=== PATIENT | female | born 1940 | race African-American/Black ===

== ENCOUNTER 2019-05-12 15:38 | Inpatient (IN) | payer OTHER ==
[~2019-05-12] VITALS: Ht 172.7 cm; Wt 48.1 kg
[2019-05-12] MEDS ORDERED: IV NORMAL SALINE 1000ML BAG 1,000 ML IV SCH (16:46)
[2019-05-12] MEDS: MORPHINE SULFATE 4 MG/ML VIAL. IV/SQ PRN ×2 (16:55→19:52)
[2019-05-12 16:57] LABS: BASO # 0.1 x10^3/uL (0.0-0.2); BASO % 1 % (0-3); EOS % 0 % (0-3); HEMATOCRIT 35.6 % (36.0-47.0); HEMOGLOBIN 11.8 g/dL (12.0-15.5); LYMPH # 1.9 x10^3/uL (1.0-4.8); LYMPH % 22 % (24-48); MEAN CORPUSCULAR HEMOGLOBIN 28 pg (25-35); MEAN CORPUSCULAR HGB CONC 33 g/dL (31-37); MEAN CORPUSCULAR VOLUME 86 fL (79-100); MONO # 0.3 x10^3/uL (0.0-1.1); MONO % 3 % (0-9); NEUT # 6.6 x10^3/uL (1.8-7.7); NEUT % 74 % (31-73); PLATELET COUNT 286 x10^3/uL (140-400); RED BLOOD COUNT 4.16 x10^6/uL (3.50-5.40); RED CELL DISTRIBUTION WIDTH 15.4 % (11.5-14.5); WHITE BLOOD COUNT 8.9 x10^3/uL (4.0-11.0)
[2019-05-12] MEDS ORDERED: LABETALOL 20 MG/4 ML DISP.SYRIN. IVP ONE (17:00)
[2019-05-12 17:30] LABS: ALBUMIN 3.8 g/dL (3.4-5.0); CALCIUM 9.8 mg/dL (8.5-10.1); CREATININE 1.3 mg/dL (0.6-1.0); GFR 47.8; POTASSIUM 3.2 mmol/L (3.5-5.1); TOTAL BILIRUBIN 0.5 mg/dL (0.2-1.0); TOTAL PROTEIN 7.5 g/dL (6.4-8.2)
[2019-05-12] MEDS ORDERED: ONDANSETRON PF 4 MG/2 ML VIAL. ONE (17:37)
[2019-05-12] MEDS ORDERED: ONDANSETRON PF 4 MG/2 ML VIAL. IV ONE (17:45)
[2019-05-12] MEDS ORDERED: PROCHLORPERAZINE 10 MG/2 ML VIAL. IV ONE (17:45)
[2019-05-12] MEDS ORDERED: MORPHINE SULFATE 10 MG/ML VIAL. IV ONE (17:45)
[2019-05-12] MEDS ORDERED: IOHEXOL 350 MG/ML 100 ML VIAL. ONE (18:00)
[2019-05-12] MEDS ORDERED: IOHEXOL 350 MG/ML 100 ML VIAL. IV ONE (18:00)
[2019-05-12] MEDS ORDERED: CONTRAST GIVEN. MC PRN (18:15)
--- NOTE | 2019-05-12 18:31 | RAD ---
PQRS Compliance statement: One or more of the following individualized dose reduction techniques were utilized for this examination: 1. Automated exposure control. 2. Adjustment of the mA and/or kV according to patient size. 3. Use of iterative reconstruction technique. Indication:Rule out dissection. Severe epigastric pain. Hypertension. Shortness of breath. TECHNIQUE: CT angiogram of the chest, abdomen and pelvis with IV contrast without and with multiplanar MIP reformats. 3-D volume rendered postprocessing was performed. COMPARISON: None FINDINGS: Heart is normal in size. No pericardial or pleural effusion. There is no evidence of aortic aneurysm or dissection. Mild atherosclerotic plaque in the infrarenal aorta and bilateral internal iliac arteries. The visualized arch vessels are patent. The celiac axis, splenic artery, left gastric artery, common hepatic artery, SMA, bilateral renal arteries, VELMA, bilateral common iliac arteries, bilateral external/internal iliac arteries, bilateral FURNACE CHECKER are patent. No enlarged axillary, mediastinal or hilar adenopathy. Mild interstitial opacities in the lingula. Bilateral peribronchial wall thickening. Diffusely patulous esophagus. Liver, spleen, pancreas, adrenals within normal limits. Status post cholecystectomy. CBD is dilated without radiopaque stone. Trace ascites. Right kidney within normal limits. Severe left hydronephrosis. No free pelvic fluid. No bowel obstruction. Urinary bladder demonstrates no radiopaque stone. Status post hysterectomy. No pneumoperitoneum. No suspicious bony lesion. IMPRESSION: 1. No evidence of aortic dissection. No significant atherosclerotic disease. 2. Patchy opacity in the lingula and bilateral peribronchial wall thickening in the lower lobes may be secondary to bronchitis and lingular pneumonia. 3. Severe left hydronephrosis. No dilated ureter seen with suggests probably UPJ stricture. Delayed that 4. Trace ascites. Electronically signed by: Hermes Serrato DO (05/12/2019 6:28 PM) [facility]
[2019-05-12 19:08] LABS: BILIRUBIN,URINE NEGATIVE (NEG); CLARITY,URINE CLEAR; COLOR,URINE YELLOW; NITRITE,URINE NEGATIVE (NEG); PH,URINE 6.5; PROTEIN,URINE NEGATIVE (NEG-TRACE); UROBILINOGEN,URINE 0.2 mg/dL (0.2 mg/dL)
[2019-05-12 19:14] LABS: AMPHETAMINE/METHAMPHETAMINE NEG (NEG); BARBITURATES NEG (NEG); BENZODIAZEPINES NEG (NEG); CANNABINOIDS NEG (NEG); COCAINE NEG (NEG); METHADONE NEG (NEG); OPIATES POS (NEG); PHENCYCLIDINE NEG (NEG)
[2019-05-12 19:17] LABS: BACTERIA,URINE 0 /HPF (0-FEW); SQUAMOUS EPITHELIAL CELL,UR MOD /LPF
[2019-05-12] MEDS ORDERED: ONDANSETRON PF 4 MG/2 ML VIAL. IV PRN (20:00)
[2019-05-12] MEDS ORDERED: MORPHINE SULFATE 4 MG/ML VIAL. IV PRN (20:00)
--- NOTE | 2019-05-12 20:00 | PHYS DOC ---
Past Medical History Past Medical History: Hypertension (MELINA LAURENT APRN) Past Surgical History: Cholecystectomy (MELINA LAURENT APRN) Alcohol Use: None Drug Use: None (MELINA LAURENT APRN) Adult General Chief Complaint Chief Complaint: SHORTNESS OF BREATH HPI HPI Patient is a 79 year old female with history of hypertension who presents to the ED today complaining of 9 out of 10 epigastric abdominal pain with nausea vomiting that began 45 minutes prior to coming to the ED. Patient is a poor historian, family member present is also poor historian. Patient is thrashing around the bed. (MELINA LAURENT APRN) Review of Systems Review of Systems Constitutional: Denies fever or chills [] Eyes: Denies change in visual acuity, redness, or eye pain [] HENT: Denies nasal congestion or sore throat [] Respiratory: Denies cough or shortness of breath [] Cardiovascular: No additional information not addressed in HPI [] GI: Reports epigastric abdominal pain with nausea and vomiting, denies bloody stools or diarrhea [] : Denies dysuria or hematuria [] Musculoskeletal: Denies back pain or joint pain [] Integument: Denies rash or skin lesions [] Neurologic: Denies headache, focal weakness or sensory changes [] All other systems were reviewed and found to be within normal limits, except as documented in this note. (MELINA LAURENT APRN) Current Medications Current Medications Current Medications Medications (Trade) Dose Ordered Sig/Theo Start Time Stop Time Status Last Admin Dose Admin Info (CONTRAST GIVEN -- Rx MONITORING) 1 each PRN DAILY PRN 05/12/19 18:15 05/14/19 18:14 Iohexol (Omnipaque 350 Mg/ml) 100 ml STK-MED ONCE 05/12/19 18:00 05/12/19 18:01 DC Labetalol HCl (Normodyne Iv Push) 10 mg 1X ONCE 05/12/19 17:00 05/12/19 17:01 DC 05/12/19 17:05 10 MG Levofloxacin/ Dextrose 100 ml @ 100 mls/hr 1X ONCE 05/12/19 20:00 05/12/19 20:59 Morphine Sulfate (Morphine Sulfate) 4 mg PRN Q2HR PRN 05/12/19 20:00 05/13/19 19:59 Ondansetron HCl (Zofran) 4 mg PRN Q8HRS PRN 05/12/19 20:00 05/13/19 19:59 Potassium Chloride (Klor-Con) 40 meq 1X ONCE 05/12/19 20:30 05/12/19 20:31 Prochlorperazine Edisylate (Compazine) 10 mg 1X ONCE 05/12/19 17:45 05/12/19 17:46 DC 05/12/19 20:01 10 MG Sodium Chloride 1,000 ml @ 100 mls/hr Q10H 05/12/19 16:46 05/13/19 02:45 05/12/19 16:56 100 MLS/HR (WAYNE SLOAN MD) Allergies Allergies Allergies Coded Allergies Type Severity Reaction Last Updated Verified Penicillins Allergy Intermediate 05/12/19 Yes (WAYNE SLOAN MD) Physical Exam Physical Exam Constitutional: Well developed, well nourished, no acute distress, non-toxic appearance. [] HENT: Normocephalic, atraumatic, bilateral external ears normal, oropharynx moist, no oral exudates, nose normal. [] Eyes: PERRLA, EOMI, conjunctiva normal, no discharge. [] Neck: Normal range of motion, no tenderness, supple, no stridor. [] Cardiovascular:Heart rate regular rhythm, no murmur [] Lungs & Thorax: Bilateral breath sounds clear to auscultation [] Abdomen: Bowel sounds normal, soft, no tenderness, no masses, no pulsatile masses. [] Skin: Warm, dry, no erythema, no rash. [] Back: No tenderness, no CVA tenderness. [] Extremities: No tenderness, no cyanosis, no clubbing, ROM intact, no edema. [] Neurologic: Alert and oriented X 3, normal motor function, normal sensory function, no focal deficits noted. [] Psychologic: Affect normal, judgement normal, mood normal. [] (MELINA LAURENT APRN) Current Patient Data Vital Signs Vital Signs Date Time Temp Pulse Resp B/P (MAP) Pulse Ox O2 Delivery O2 Flow Rate FiO2 05/12/19 19:52 49 24 165/87 (113) Room Air 05/12/19 18:40 99 05/12/19 16:19 98.5 98.5 (WAYNE SLOAN MD) Lab Values Laboratory Tests Test 05/12/19 16:35 05/12/19 18:50 White Blood Count 8.9 x10^3/uL (4.0-11.0) Red Blood Count 4.16 x10^6/uL (3.50-5.40) Hemoglobin 11.8 g/dL (12.0-15.5) L Hematocrit 35.6 % (36.0-47.0) L Mean Corpuscular Volume 86 fL (79-100) Mean Corpuscular Hemoglobin 28 pg (25-35) Mean Corpuscular Hemoglobin Concent 33 g/dL (31-37) Red Cell Distribution Width 15.4 % (11.5-14.5) H Platelet Count 286 x10^3/uL (140-400) Neutrophils (%) (Auto) 74 % (31-73) H Lymphocytes (%) (Auto) 22 % (24-48) L Monocytes (%) (Auto) 3 % (0-9) Eosinophils (%) (Auto) 0 % (0-3) Basophils (%) (Auto) 1 % (0-3) Neutrophils # (Auto) 6.6 x10^3/uL (1.8-7.7) Lymphocytes # (Auto) 1.9 x10^3/uL (1.0-4.8) Monocytes # (Auto) 0.3 x10^3/uL (0.0-1.1) Eosinophils # (Auto) 0.0 x10^3/uL (0.0-0.7) Basophils # (Auto) 0.1 x10^3/uL (0.0-0.2) Sodium Level 143 mmol/L (136-145) Potassium Level 3.2 mmol/L (3.5-5.1) L Chloride Level 104 mmol/L (98-107) Carbon Dioxide Level 24 mmol/L (21-32) Anion Gap 15 (6-14) H Blood Urea Nitrogen 16 mg/dL (7-20) Creatinine 1.3 mg/dL (0.6-1.0) H Estimated GFR (Cockcroft-Gault) 47.8 BUN/Creatinine Ratio 12 (6-20) Glucose Level 180 mg/dL (70-99) H Calcium Level 9.8 mg/dL (8.5-10.1) Magnesium Level 2.0 mg/dL (1.8-2.4) Total Bilirubin 0.5 mg/dL (0.2-1.0) Aspartate Amino Transferase (AST) 14 U/L (15-37) L Alanine Aminotransferase (ALT) 10 U/L (14-59) L Alkaline Phosphatase 74 U/L (46-116) Creatine Kinase 134 U/L (26-192) Creatine Kinase MB (Mass) 1.0 ng/mL (0.0-3.6) Creatine Kinase MB Relative Index 0.7 % (0-4) Troponin I Quantitative < 0.017 ng/mL (0.000-0.055) HL-Mck-O-Type Natriuretic Peptide 2161 pg/mL (0-449) H Total Protein 7.5 g/dL (6.4-8.2) Albumin 3.8 g/dL (3.4-5.0) Albumin/Globulin Ratio 1.0 (1.0-1.7) Lipase 92 U/L (73-393) Thyroid Stimulating Hormone (TSH) 13.447 uIU/mL (0.358-3.74) H Urine Collection Type Unknown Urine Color Yellow Urine Clarity Clear Urine pH 6.5 Urine Specific [place] >=1.030 Urine Protein Negative mg/dL (NEG-TRACE) Urine Glucose (UA) Negative mg/dL (NEG) Urine Ketones (Stick) Negative mg/dL (NEG) Urine Blood Negative (NEG) Urine Nitrite Negative (NEG) Urine Bilirubin Negative (NEG) Urine Urobilinogen Dipstick 0.2 mg/dL (0.2 mg/dL) Urine Leukocyte Esterase Negative (NEG) Urine RBC 1-2 /HPF (0-2) Urine WBC 1-4 /HPF (0-4) Urine Squamous Epithelial Cells Mod /LPF Urine Bacteria 0 /HPF (0-FEW) Urine Mucus Slight /LPF Urine Opiates Screen Pos (NEG) Urine Methadone Screen Neg (NEG) Urine Barbiturates Neg (NEG) Urine Phencyclidine Screen Neg (NEG) Urine Amphetamine/Methamphetamine Neg (NEG) Urine Benzodiazepines Screen Neg (NEG) Urine Cocaine Screen Neg (NEG) Urine Cannabinoids Screen Neg (NEG) Urine Ethyl Alcohol Neg (NEG) Laboratory Tests 05/12/19 16:35 Laboratory Tests 05/12/19 16:35 (WAYNE SLOAN MD) EKG EKG 1740 interpreted by sinus rhythm with inverted T waves on V4,, V5 no stemi.[] (MELINA LAURENT APRN) Radiology/Procedures Radiology/Procedures []PROCEDURE: CT ANGIO CHEST ABD PELVIS PQRS Compliance statement: One or more of the following individualized dose reduction techniques were utilized for this examination: 1. Automated exposure control. 2. Adjustment of the mA and/or kV according to patient size. 3. Use of iterative reconstruction technique. Indication:Rule out dissection. Severe epigastric pain. Hypertension. Shortness of breath. TECHNIQUE: CT angiogram of the chest, abdomen and pelvis with IV contrast without and with multiplanar MIP reformats. 3-D volume rendered postprocessing was performed. COMPARISON: None FINDINGS: Heart is normal in size. No pericardial or pleural effusion. There is no evidence of aortic aneurysm or dissection. Mild atherosclerotic plaque in the infrarenal aorta and bilateral internal iliac arteries. The visualized arch vessels are patent. The celiac axis, splenic artery, left gastric artery, common hepatic artery, SMA, bilateral renal arteries, VELMA, bilateral common iliac arteries, bilateral external/internal iliac arteries, bilateral ENGRAVER LETTERING are patent. No enlarged axillary, mediastinal or hilar adenopathy. Mild interstitial opacities in the lingula. Bilateral peribronchial wall thickening. Diffusely patulous esophagus. Liver, spleen, pancreas, adrenals within normal limits. Status post cholecystectomy. CBD is dilated without radiopaque stone. Trace ascites. Right kidney within normal limits. Severe left hydronephrosis. No free pelvic fluid. No bowel obstruction. Urinary bladder demonstrates no radiopaque stone. Status post hysterectomy. No pneumoperitoneum. No suspicious bony lesion. IMPRESSION: 1. No evidence of aortic dissection. No significant atherosclerotic disease. 2. Patchy opacity in the lingula and bilateral peribronchial wall thickening in the lower lobes may be secondary to bronchitis and lingular pneumonia. 3. Severe left hydronephrosis. No dilated ureter seen with suggests probably UPJ stricture. Delayed that 4. Trace ascites. Electronically signed by: Hermes Serrato DO (05/12/2019 6:28 PM) [facility] DICTATED and SIGNED BY: HERMES SERRATO DO DATE: 05/12/19 182 (MELINA LAURENT APRN) Course & Med Decision Making Course & Med Decision Making Pertinent Labs and Imaging studies reviewed. (See chart for details) This is 79-year-old. Patient presents to the ED today with epigastric abdominal pain nausea and vomiting that began 45 minutes prior to coming to the ED. Patient's blood pressure arrival is 258/121 with a heart rate of 60 EKG noted foreign body T waves, discussed results with Dr. Varma CBC with normal WBC, hemoglobin 11.8, hematocrit 35.6, CMP with potassium of 3.2-oral potassium replacement ordered. CT chest abdomen and pelvis were ordered to rule out dissection, CT is noted for possible pneumonia. Also CT noted for left hydronephrosis. Urine analysis is negative for infection Spoke with Dr. Ambrose who accepted patient for admission on behalf of Dr. Zacarias (MELINA LAURENT APRN) Course & Med Decision Making Staff Physician Addendum: I was working in the ER during the course of this patient's visit. I was available for consultation as needed, I saw the patient we did a stat CT scan for dissection we gave labetalol Critical care time was 35 minutes exclusive of procedures. For management of hypertensive urgency with blood pressures in the 258 range initially. Improved significantly after dose of labetalol we did a stat CT scan to rule out dissection. Pneumonia was identified antibiotics ordered lactic acid is currently pending initially Dr. ambrose would be the admitting doctor but she called us back and said this patient is no longer being seen in their practice so I spoke with Dr. Handley at 8:15 PM serial troponins management of blood pressure and pneumonia he accepted the admission] (WAYNE SLOAN MD) Dragon Disclaimer Dragon Disclaimer This electronic medical record was generated, in whole or in part, using a voice recognition dictation system. (MELINA LAURENT APRN) Departure Departure Impression: Primary Impression: Hypertension Additional Impressions: Abdominal pain Community acquired pneumonia Abnormal EKG Disposition: ADMITTED INPATIENT Admitting Physician: FRANCISCO (WAYNE SLOAN MD) Condition: STABLE Referrals: DAHIANA ZACARIAS MD (PCP) Problem Qualifiers Primary Impression: Hypertension Hypertension type: unspecified Qualified Codes: I10 - Essential (primary) hypertension Additional Impressions: Abdominal pain Abdominal location: epigastric Qualified Codes: R10.13 - Epigastric pain Community acquired pneumonia Laterality: unspecified laterality Qualified Codes: J18.9 - Pneumonia, unspecified organism MELINA LAURENT APRN May 12, 2019:00 WAYNE SLOAN MD May 12, 2019 20:18
[2019-05-12] MEDS ORDERED: POTASSIUM CHLORIDE 20 MEQ TABLET.ER. PO ONE (20:30)
[2019-05-12] MEDS ORDERED: fentaNYL PF VIAL 100 MCG/2 ML VIAL IV ONE (21:00)
[2019-05-12 22:14] LABS: BASO % 0 % (0-3); EOS % 0 % (0-3); HEMATOCRIT 38.2 % (36.0-47.0); HEMOGLOBIN 12.4 g/dL (12.0-15.5); LYMPH # 0.6 x10^3/uL (1.0-4.8); LYMPH % 7 % (24-48); MEAN CORPUSCULAR HEMOGLOBIN 28 pg (25-35); MEAN CORPUSCULAR HGB CONC 33 g/dL (31-37); MEAN CORPUSCULAR VOLUME 87 fL (79-100); MONO # 0.2 x10^3/uL (0.0-1.1); MONO % 2 % (0-9); NEUT # 7.7 x10^3/uL (1.8-7.7); NEUT % 91 % (31-73); PLATELET COUNT 253 x10^3/uL (140-400); WHITE BLOOD COUNT 8.5 x10^3/uL (4.0-11.0)
--- NOTE | 2019-05-12 22:45 | NUR ---
Patient admitted to room 261. Patient alert and oriented x 4. Patient oriented to room, bed, call light and plan of care. Patient verbalized understanding. ED IVF bag completed and stopped per ED RN. Patient hooked up to monitor and admission vitals, height and weight obtained. See admission assessment/documentation. Call light in reach, Patient verbalized understanding on need to call to get out of bed.
[2019-05-12 22:53] VITALS: BP 91/61
[2019-05-12 22:57] LABS: % BANDS 2 % (0-9); % LYMPHS 10 % (24-48); % MONOS 1 % (0-10); % SEGS 87 % (35-66)
[2019-05-12 22:58] LABS: PLT ESTIMATE ADEQUATE (ADEQUATE)
[2019-05-12 22:59] LABS: TOXIC GRANULATION SLIGHT
--- NOTE | 2019-05-13 02:35 | NUR ---
Patient assisted to restroom and incontinent of urine. Upon removing Patient's pants noticed Patient has prolapsed bladder or uterus. Patient denies ever being told she has a prolapsed uterus or bladder.
[2019-05-13 03:55] VITALS: BP 99/65
--- NOTE | 2019-05-13 04:20 | NUR ---
Patient complains of Abdominal pain Morphine SIVP given. Patient c/o SOA, O2 2 liters nasal canula placed on Patient. O2 saturation 96-100 percent on 2 liters.
--- NOTE | 2019-05-13 06:04 | EKG ---
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
--- NOTE | 2019-05-13 06:05 | EKG ---
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
[2019-05-13] MEDS ORDERED: ETOMIDATE 20 MG/10 ML VIAL. IV ONE (06:20)
[2019-05-13] MEDS ORDERED: SUCCINYLCHOLINE 200 MG/10 ML VIAL. ONE (06:20)
[2019-05-13 06:25] LABS: BASO % 0 % (0-3); EOS % 0 % (0-3); HEMATOCRIT 32.9 % (36.0-47.0); HEMOGLOBIN 9.9 g/dL (12.0-15.5); LYMPH # 1.7 x10^3/uL (1.0-4.8); LYMPH % 19 % (24-48); MEAN CORPUSCULAR HEMOGLOBIN 28 pg (25-35); MEAN CORPUSCULAR HGB CONC 30 g/dL (31-37); MONO # 0.3 x10^3/uL (0.0-1.1); MONO % 3 % (0-9); NEUT # 7.2 x10^3/uL (1.8-7.7); NEUT % 78 % (31-73); PLATELET COUNT 180 x10^3/uL (140-400); RED BLOOD COUNT 3.55 x10^6/uL (3.50-5.40); RED CELL DISTRIBUTION WIDTH 17.1 % (11.5-14.5); WHITE BLOOD COUNT 9.2 x10^3/uL (4.0-11.0)
--- NOTE | 2019-05-13 06:25 | PDOC5 ---
CODE REPORT CODE REPORT I was called to BRIDGET OLIVAREZ at 5:40 AM this is a 79-year-old female admitted overnight for epigastric pain hypertension community acquired pneumonia. Had T- wave inversions on EKG reviewed with the rag willow operator. Apparently had a bradycardic arrest was complaining of shortness of breath prior to the incident On my arrival CPR was being performed we gave epinephrine we gave a dose of atropine I intubated the patient intubation note: [place] 4 blade 7.5 tube first attempt esophageal intubation quickly probably discovered in less than 1 minute it was removed and then placed a 7.5 tube into the trachea Confirmed with both quantitative end-tidal CO2 as well as breath sounds as well as I looked again with a Ethan scope to confirm placement Central line emergent procedure crash Modified sterile technique due to emergent conditions. Triple-lumen right femoral brown port was not flushing remainder of the ports were working I notified the nursing staff of this discrepancy. Patient had a return of spontaneous resolution after approximately 25 minutes of the code. There was one episode of what look like V. fib so we shocked her once but it was 10 more minutes before R OSC. Patient was on dopamine drip due to the initial bradycardia had multiple doses of epinephrine also a dose of bicarbonate ultimately we did get return of spontaneous circulation post code EKG I spoke with the rag willow operator on-call. Reviewed EKG at 6:1 15 a.m.. Global ischemia no STEMI he will come in shortly and discuss a possible catheter with the family. Patient is transferred to the ICU in critical condition Review of the chart from earlier did note 2 negative troponins mildly elevated lactic acidosis. Current etiology of the cardiac arrest is somewhat unclear at this time differential would include primary cardiac versus hypoxic bradycardic arrest versus intra-abdominal process however other than trace ascites CT scan did not show acute surgical emergency from the emergency room visit. Critical care time was 45 minutes exclusive of procedures. WAYNE SLOAN MD May 13, 2019 06:25
[2019-05-13 06:35] LABS: MEAN CORPUSCULAR VOLUME 91 fL (79-100)
[2019-05-13] MEDS ORDERED: AMIODARONE 900 MG in IV DEXTROSE 5% 500 ML IV PRN (06:45)
[2019-05-13 06:54] LABS: CREATININE 1.7 mg/dL (0.6-1.0); GFR 35.1
[2019-05-13 07:00] VITALS: BP 49/31
[2019-05-13 07:00] LABS: POTASSIUM 5.8 mmol/L (3.5-5.1)
[2019-05-13 07:18] LABS: BASE EXCESS ABG -11 mmol/L (-3-3); HCO3 ABG 19 mmol/L (21-28); PO2 ABG 53 mmHg (65-108)
[2019-05-13 07:19] LABS: FIO2 ABG 100
--- NOTE | 2019-05-13 07:19 | NUR ---
0615- pt transfered to room 108 from 2 S following pt code. Pt unresponsive and placed on ventilator and monitor upon arrival. Report received from AVEL Mooney. Unable to get a BP, HR 90s with a pulse. Will monitor. 0626- patient HR decreased to 50s without a pulse. Code blue called, see code blue sheet.
--- NOTE | 2019-05-13 07:32 | EKG ---
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
--- NOTE | 2019-05-13 07:38 | EKG ---
[facility] [address] [place] [address] Test Date: 2019-05-12 Test Time: 21:55:45 Pat Name: STEVEN COWART Department: Room: 108 1 Gender: F Manager Account Management: : 1940 Requested By: MIKEY MONTGOMERY Order Number: [id number] Reading MD: Ruben Varma MD Measurements Intervals [place] Rate: 48 P: 35 MT: 144 QRS: -26 QRSD: 94 T: -101 QT: 616 QTc: 550 Interpretive Statements SINUS BRADYCARDIA ANTERIOR/LATERAL ISCHEMIA Electronically Signed On 05-23-2019 14:44:09 CDT by Ruben Varma MD
[2019-05-13 07:50] VITALS: BP 125/56
--- NOTE | 2019-05-13 08:10 | NUR ---
At 0533 Patient's heart rate on monitor was 38. Rapid response called. Fast patches placed on Patient and code cart at bedside. Patient condition deteriorated became apneic, no pulse found. Code called. ACLS protocol initiated. See code Blue record. Life pack 12 time was 8 minutes slower than wall clock, recorder stated she used life pack clock for recording. Patient taken to ICU at 0610. Report given to Pati VALLECILLO in ICU.
--- NOTE | 2019-05-13 08:35 | RAD ---
CHEST AP ONLY Clinical Indication: Intubated Comparison: 05/12/2019 CTA of the chest abdomen and pelvis . Findings: Portable supine frontal view of the chest was obtained. Endotracheal tube terminates 2.6 cm from the neva. Enteric tube terminates at the gastric esophageal junction. The cardiomediastinal silhouette is normal. Interstitial thickening of the lung braxton noted. Left lower lung field atelectasis is present. Retrocardiac atelectasis is evident.. Linear lucency at the right lung base laterally probably represents a skinfold. No pleural effusion is appreciated. Right fifth, sixth, and seventh acute displaced rib fractures posterolaterally are present . Spurring of the thoracic spine is noted. Degenerative changes of the left glenohumeral joint evident. IMPRESSION: Acute right rib fractures are noted in the interval. Right basilar opacity likely represents a skinfold. Consider follow-up semierect view to assess for possibility of pneumothorax. Interstitial thickening along braxton noted. Retrocardiac atelectasis noted. Enteric tube terminates just past the gastroesophageal junction level. Further advancement by a few to several more centimeters to be considered. Electronically signed by: Luc Rojas MD (05/13/2019 8:32 AM) [facility]
--- NOTE | 2019-05-13 08:50 | RAD ---
Examination: KUB History: Orogastric tube placement. Comparison/Correlation: 11/25/2009 and to a chest x-ray exam and CT chest with contrast Findings: Supine portable frontal view of the abdomen was obtained. Retrocardiac left basilar atelectasis is seen. Interstitial thickening lung bases noted. Acute right sixth and seventh rib fractures posterolaterally are present. Enteric tube terminates at the level of the gastroesophageal junction. Represent surgical clips are present. Bowel gas pattern is unremarkable. Lucency is noted involving the right flank region and of indeterminate significance. Retained contrast noted in the pelvicalyceal systems. Impression: Enteric tube terminates at the gastroesophageal junction. Consider further advancement by at least 7 cm is not already performed. No bowel obstruction. Lucency overlying the right flank region is of indeterminate significance. Consider upright abdomen x-ray view or CT exam to assess for possibility of extraluminal gas all. Discussed with the patient's nurse Renetta on 05/13/2019 at 8:40 AM. Electronically signed by: Luc Rojas MD (05/13/2019 8:47 AM) [facility]
[2019-05-13] MEDS ORDERED: EPINEPHrine SYRINGE 1 MG/10 ML SYRINGE ONE ×2 (09:00)
[2019-05-13] MEDS ORDERED: DOPamine 400MG/250ML PREMIX 400 MG/250 ML BAG IV ONE (09:00)
[2019-05-13] MEDS ORDERED: ATROPINE 0.5 MG/5 ML DISP.SYRINGE. ONE ×2 (09:00)
[2019-05-13] MEDS ORDERED: EPINEPHRINE IV PRN (09:00)
[2019-05-13] MEDS ORDERED: FLU VAX QS 2019-20 (36MOS+)/PF 0.5 ML SYRINGE. VAX IM ONE (09:00)
[2019-05-13] MEDS ORDERED: AMIODARONE 150 MG/3 ML VIAL ONE (09:00)
[2019-05-13] MEDS ORDERED: MAGNESIUM SULFATE PREMIX 1 GM/100 ML BAG. IV ONE (09:00)
[2019-05-13] MEDS ORDERED: NORMAL SALINE IV PRN (09:00)
[2019-05-13] MEDS ORDERED: SODIUM BICARB ADULT 8.4% 50 MEQ/50 ML DISP.SYRIN. ONE ×2 (09:00)
[2019-05-13] MEDS: NOREPINEPHRIN 8MG/250ML PREMIX 250 ML IV PRN ×2 (09:10→11:58)
[2019-05-13 09:41] LABS: BASE EXCESS ABG -22 mmol/L (-3-3); HCO3 ABG 8 mmol/L (21-28); PCO2 ABG 33 mmHg (35-46); PO2 ABG 198 mmHg (65-108); SAT O2 ABG 98 % (92-99)
[2019-05-13 09:44] LABS: FIO2 ABG 100
--- NOTE | 2019-05-13 10:20 | NUR ---
Patient transferred to ICU prior to change of shift. Currently on maximum dose of Levophed, Dopamine, Epi gtt's. Intubated during code. Dr. Ulloa consulted. Dr. Varma notified of situation, order received for EKG. Patient not candidate for hypothermia protocol due to vasopressor support. Dr. Niño notified of consult while he was on unit. Order received to "call him tomorrow" to give patient time to wake up from code situation. Family is at bedside-- notified of severity of the situation, patient condition. Unable to obtain BP at this time. MD aware. Dr. Vera attemtped multiple times. ART line did not sustain. See VS, assessments.
--- NOTE | 2019-05-13 10:48 | PDOC2 ---
CARDIAC CONSULT DATE OF CONSULT Date of Consult DATE: 05/13/19 TIME: 10:38 REASON FOR CONSULT Reason for Consult: Abnormal EKG REFERRING PHYSICIAN Referring Physician: Poornima Reynolds APRN SOURCE Source: Chart review, Patient HISTORY OF PRESENT ILLNESS HISTORY OF PRESENT ILLNESS This is a 79 yo female who presented secondary to abdominal pain and nausea/vomiting. Early this morning, rapid response was called due to chaya ycardia and agonal breathing. Patient eventually went in to PEA arrest. Shocked deliver twice. Some reported V-fib during code. ROSC was obtained after 25 mins. Patient arrested again in ICU and was coded for about 10mins with ROSC. Patient remains significantly hypotensive despite being maxed out of 3 pressors. No reports of recent chest pain, palpitations, dizziness, or diaphoresis. No reports of chest pain prior to code. PAST MEDICAL HISTORY Cardiovascular: HTN, Hyperlipidemia Musculoskeletal: Osteoarthritis PAST SURGICAL HISTORY Past Surgical History: No pertinent history SOCIAL HISTORY ALCOHOL: none Drugs: None Lives: with Family CURRENT MEDICATIONS CURRENT MEDICATIONS Current Medications Medications (Trade) Dose Ordered Sig/Theo Route PRN Reason Start Time Stop Time Status Last Admin Dose Admin Morphine Sulfate (Morphine Sulfate) 4 mg PRN Q15MIN PRN IV/SQ PAIN GREATER THAN 3/10 05/12/19 17:00 05/12/19 23:00 DC 05/12/19 19:52 Sodium Chloride 1,000 ml @ 100 mls/hr Q10H IV 05/12/19 16:46 05/13/19 02:45 DC 05/12/19 16:56 Labetalol HCl (Normodyne Iv Push) 10 mg 1X ONCE IVP 05/12/19 17:00 05/12/19 17:01 DC 05/12/19 17:05 Prochlorperazine Edisylate (Compazine) 10 mg 1X ONCE IV 05/12/19 17:45 05/12/19 17:46 DC 05/12/19 20:01 Ondansetron HCl (Zofran) 4 mg 1X ONCE IV 05/12/19 17:45 05/12/19 17:46 DC 05/12/19 17:42 Iohexol (Omnipaque 350 Mg/ml) 75 ml 1X ONCE IV 05/12/19 18:00 05/12/19 18:01 DC 05/12/19 18:00 Morphine Sulfate (Morphine Sulfate) 4 mg PRN Q2HR PRN IV PAIN 05/12/19 20:00 05/13/19 19:59 05/13/19 04:20 Levofloxacin/ Dextrose 100 ml @ 100 mls/hr 1X ONCE IV 05/12/19 20:00 05/12/19 20:59 DC 05/12/19 20:45 Potassium Chloride (Klor-Con) 40 meq 1X ONCE PO 05/12/19 20:30 05/12/19 20:31 DC 05/12/19 20:44 Norepinephrine Bitartrate 250 ml @ 9 mls/hr CONT PRN IV SEE I/O RECORD 05/13/19 06:45 05/13/19 09:10 Epinephrine HCl 4 mg/Sodium Chloride 254 ml @ 18.288 mls/ hr CONT PRN IV SEE I/O RECORD 05/13/19 06:45 05/13/19 09:09 ALLERGIES ALLERGIES: Coded Allergies: Penicillins (Verified Allergy, Intermediate, 05/12/19) ROS Review of System unobtainable PHYSICAL EXAM General: Other (nonresponsibe ) HEENT: Other (pupils fixed, dilated ) Lungs: Other (intubated with mechanical vent) Heart: Regular rate, Normal S1, Normal S2 Abdomen: Soft Extremities: No edema, Other (extremities cool to touch) Skin: No rashes, No significant lesion Neuro: Other (non-responsive ) MUSCULOSKELETAL: Osteoarthritic changes both hands VITALS/I&O VITALS/I&O: Vital Signs Date Time Temp Pulse Resp B/P (MAP) Pulse Ox O2 Delivery O2 Flow Rate FiO2 05/13/19 08:00 Mechanical Ventilator 05/13/19 07:56 100 05/13/19 07:00 84 16 49/31 (37) 05/13/19 04:50 2.0 05/13/19 03:55 97.0 97.0 LABS Lab: Laboratory Tests Test 05/12/19 16:35 05/12/19 18:50 05/12/19 21:50 05/12/19 22:05 White Blood Count 8.9 x10^3/uL (4.0-11.0) 8.5 x10^3/uL (4.0-11.0) Red Blood Count 4.16 x10^6/uL (3.50-5.40) 4.40 x10^6/uL (3.50-5.40) Hemoglobin 11.8 g/dL (12.0-15.5) L 12.4 g/dL (12.0-15.5) Hematocrit 35.6 % (36.0-47.0) L 38.2 % (36.0-47.0) Mean Corpuscular Volume 86 fL (79-100) 87 fL (79-100) Mean Corpuscular Hemoglobin 28 pg (25-35) 28 pg (25-35) Mean Corpuscular Hemoglobin Concent 33 g/dL (31-37) 33 g/dL (31-37) Red Cell Distribution Width 15.4 % (11.5-14.5) H 16.0 % (11.5-14.5) H Platelet Count 286 x10^3/uL (140-400) 253 x10^3/uL (140-400) Neutrophils (%) (Auto) 74 % (31-73) H 91 % (31-73) H Lymphocytes (%) (Auto) 22 % (24-48) L 7 % (24-48) L Monocytes (%) (Auto) 3 % (0-9) 2 % (0-9) Eosinophils (%) (Auto) 0 % (0-3) 0 % (0-3) Basophils (%) (Auto) 1 % (0-3) 0 % (0-3) Neutrophils # (Auto) 6.6 x10^3/uL (1.8-7.7) 7.7 x10^3/uL (1.8-7.7) Lymphocytes # (Auto) 1.9 x10^3/uL (1.0-4.8) 0.6 x10^3/uL (1.0-4.8) L Monocytes # (Auto) 0.3 x10^3/uL (0.0-1.1) 0.2 x10^3/uL (0.0-1.1) Eosinophils # (Auto) 0.0 x10^3/uL (0.0-0.7) 0.0 x10^3/uL (0.0-0.7) Basophils # (Auto) 0.1 x10^3/uL (0.0-0.2) 0.0 x10^3/uL (0.0-0.2) Sodium Level 143 mmol/L (136-145) Potassium Level 3.2 mmol/L (3.5-5.1) L Chloride Level 104 mmol/L (98-107) Carbon Dioxide Level 24 mmol/L (21-32) Anion Gap 15 (6-14) H Blood Urea Nitrogen 16 mg/dL (7-20) Creatinine 1.3 mg/dL (0.6-1.0) H Estimated GFR (Cockcroft-Gault) 47.8 BUN/Creatinine Ratio 12 (6-20) Glucose Level 180 mg/dL (70-99) H Calcium Level 9.8 mg/dL (8.5-10.1) Magnesium Level 2.0 mg/dL (1.8-2.4) Total Bilirubin 0.5 mg/dL (0.2-1.0) Aspartate Amino Transferase (AST) 14 U/L (15-37) L Alanine Aminotransferase (ALT) 10 U/L (14-59) L Alkaline Phosphatase 74 U/L (46-116) Creatine Kinase 134 U/L (26-192) Creatine Kinase MB (Mass) 1.0 ng/mL (0.0-3.6) Creatine Kinase MB Relative Index 0.7 % (0-4) Troponin I Quantitative < 0.017 ng/mL (0.000-0.055) < 0.017 ng/mL (0.000-0.055) RJ-Jop-G-Type Natriuretic Peptide 2161 pg/mL (0-449) H Total Protein 7.5 g/dL (6.4-8.2) Albumin 3.8 g/dL (3.4-5.0) Albumin/Globulin Ratio 1.0 (1.0-1.7) Lipase 92 U/L (73-393) Thyroid Stimulating Hormone (TSH) 13.447 uIU/mL (0.358-3.74) H Urine Collection Type Unknown Urine Color Yellow Urine Clarity Clear Urine pH 6.5 Urine Specific [place] >=1.030 Urine Protein Negative mg/dL (NEG-TRACE) Urine Glucose (UA) Negative mg/dL (NEG) Urine Ketones (Stick) Negative mg/dL (NEG) Urine Blood Negative (NEG) Urine Nitrite Negative (NEG) Urine Bilirubin Negative (NEG) Urine Urobilinogen Dipstick 0.2 mg/dL (0.2 mg/dL) Urine Leukocyte Esterase Negative (NEG) Urine RBC 1-2 /HPF (0-2) Urine WBC 1-4 /HPF (0-4) Urine Squamous Epithelial Cells Mod /LPF Urine Bacteria 0 /HPF (0-FEW) Urine Mucus Slight /LPF Urine Opiates Screen Pos (NEG) Urine Methadone Screen Neg (NEG) Urine Barbiturates Neg (NEG) Urine Phencyclidine Screen Neg (NEG) Urine Amphetamine/Methamphetamine Neg (NEG) Urine Benzodiazepines Screen Neg (NEG) Urine Cocaine Screen Neg (NEG) Urine Cannabinoids Screen Neg (NEG) Urine Ethyl Alcohol Neg (NEG) Lactic Acid Level 2.7 mmol/L (0.4-2.0) H Segmented Neutrophils % 87 % (35-66) H Band Neutrophils % 2 % (0-9) Lymphocytes % 10 % (24-48) L Monocytes % 1 % (0-10) Toxic Granulation Slight Platelet Estimate Adequate (ADEQUATE) Test 05/13/19 06:08 05/13/19 06:09 05/13/19 06:25 05/13/19 06:55 White Blood Count 9.2 x10^3/uL (4.0-11.0) Red Blood Count 3.55 x10^6/uL (3.50-5.40) Hemoglobin 9.9 g/dL (12.0-15.5) L Hematocrit 32.9 % (36.0-47.0) L Mean Corpuscular Volume 91 fL (79-100) Mean Corpuscular Hemoglobin 28 pg (25-35) Mean Corpuscular Hemoglobin Concent 30 g/dL (31-37) L Red Cell Distribution Width 17.1 % (11.5-14.5) H Platelet Count 180 x10^3/uL (140-400) Neutrophils (%) (Auto) 78 % (31-73) H Lymphocytes (%) (Auto) 19 % (24-48) L Monocytes (%) (Auto) 3 % (0-9) Eosinophils (%) (Auto) 0 % (0-3) Basophils (%) (Auto) 0 % (0-3) Neutrophils # (Auto) 7.2 x10^3/uL (1.8-7.7) Lymphocytes # (Auto) 1.7 x10^3/uL (1.0-4.8) Monocytes # (Auto) 0.3 x10^3/uL (0.0-1.1) Eosinophils # (Auto) 0.0 x10^3/uL (0.0-0.7) Basophils # (Auto) 0.0 x10^3/uL (0.0-0.2) Glucose (Fingerstick) 88 mg/dL (70-99) Sodium Level 146 mmol/L (136-145) H Potassium Level 5.8 mmol/L (3.5-5.1) #H Chloride Level 108 mmol/L (98-107) H Carbon Dioxide Level 9 mmol/L (21-32) *L Anion Gap 29 (6-14) H Blood Urea Nitrogen 24 mg/dL (7-20) H Creatinine 1.7 mg/dL (0.6-1.0) H Estimated GFR (Cockcroft-Gault) 35.1 Glucose Level 102 mg/dL (70-99) H Calcium Level 9.0 mg/dL (8.5-10.1) Troponin I Quantitative < 0.017 ng/mL (0.000-0.055) Lactic Acid Level 18.8 mmol/L (0.4-2.0) *H Test 05/13/19 07:10 05/13/19 09:35 O2 Saturation 69 % (92-99) *L 98 % (92-99) Arterial Blood pH 7.06 (7.35-7.45) *L 6.98 (7.35-7.45) *L Arterial Blood pCO2 at Patient Temp 68 mmHg (35-46) *H 33 mmHg (35-46) L Arterial Blood pO2 at Patient Temp 53 mmHg (65-108) L 198 mmHg (65-108) H Arterial Blood HCO3 19 mmol/L (21-28) L 8 mmol/L (21-28) L Arterial Blood Base Excess -11 mmol/L (-3-3) L -22 mmol/L (-3-3) L FiO2 100 100 Laboratory Tests 05/12/19 16:35 05/12/19 22:05 05/13/19 06:08 Laboratory Tests 05/12/19 16:35 05/13/19 06:25 ASSESSMENT/PLAN ASSESSMENT/PLAN 1. Abdominal pain, nausea/vomiting 2. S/p cardiac arrest; approximately 25 mins to ROSC follow by another code with 10mins of CPR prior to ROSC. Reported v-fib during code, induced. This did not precipitate arrest. 3. Acute respiratory failure; s/p intubation 4. ANNALEE, hyperkalemia 5. Bradycardia, none further since transfer to ICU 6. Accelerated hypertension, POA. Now hypotensive requiring multiple pressors 7. Lactic acidosis 8. Probable anoxic brain injury from prolonged code 9. Hyperlipidemia Recommendations Echo to asses LV systolic function Critically ill, d/w family. Recommend DNR status. D/w family and they will make a decision soon. Supportive care PETER MEJIA APRN May 13, 2019 10:48
--- NOTE | 2019-05-13 10:49 | EKG ---
[facility] [address] [place] [address] Test Date: 2019-05-13 Test Time: 10:38:05 Pat Name: STEVEN COWART Department: Room: 108 1 Gender: F Dentist Attendant: IZABELLA : 1940 Requested By: RUBEN BOX Order Number: [id number] Reading MD: Ruben Box MD Measurements Intervals [place] Rate: 80 P: VA: QRS: -9 QRSD: 82 T: 74 QT: 454 QTc: 528 Interpretive Statements CONSIDER ATRIAL FIBRILLATION WITH CONTROLLED RESPONSE. NON-SPECIFIC ST/T CHANGES CONSIDER ELECTROLYTE ABNORMALITIES Electronically Signed On 05-24-2019 10:05:19 CDT by Ruben Box MD
[2019-05-13 11:00] VITALS: BP 73/44
[2019-05-13 11:15] VITALS: BP 82/54
[2019-05-13 11:30] VITALS: BP 87/52
[2019-05-13] MEDS ORDERED: levOFLOXacin PER PHARMACY. MC PRN (11:30)
--- NOTE | 2019-05-13 11:46 | CONS ---
DATE OF CONSULTATION: ATTENDING PHYSICIAN: Dr. Choe. REASON FOR CONSULTATION: Code blue, cardiac arrest. HISTORY OF PRESENT ILLNESS: The patient is a 79-year-old female who has past medical history of hypertension. She is very emaciated. She was brought into the Emergency Room with complained of epigastric pain 9/10 and also some nausea and vomiting. A code blue was called up on the floor; however, prior to the code blue, she had an angiography performed of her chest and there was no evidence of any aortic dissection. There was patchy infiltrate in the lingula and there was severe left hydronephrosis. The patient then had a code blue and she had CPR for PEA initially for 30 minutes and then she also had some reported V-fib. The patient had another round of code blue for 30 minutes. She was brought into the ICU on 3 pressors and maximum doses of systolic blood pressure in the 60s and 70s. The nursing staff called me stat as she was oozing significantly from her right triple lumen groin. We applied pressure, but the bleeding did not. There was still a venous stick. I had to suture the incision and it did stop the bleeding. The patient's chest x-ray post-intubation was reviewed. There was evidence of mild cephalization of vessels with CHF. There is skinfold and there are broken ribs on the right side and no definite pneumothorax was seen. The patient's extensive family was at the bedside and I had a long discussion with the family. I explained to them likelihood of anoxic encephalopathy and cardiac arrest in the setting of 30 minutes x 2 of prolonged CPR. I explained to them that her chances of survival is very minimal. They agreed to it and the son states that they would not do any further CPR. They will likely withdraw care. They wanted to make sure that her boyfriend who they do not think is to her is also notified. PAST MEDICAL HISTORY: History of hypertension. PAST SURGICAL HISTORY: Cholecystectomy. SOCIAL HISTORY: Nonsmoker. ALLERGIES: PENICILLIN. MEDICATIONS: That were given, were all reviewed. PHYSICAL EXAMINATION: GENERAL: She is intubated. She is not sedated. HEENT: Her pupils are dilated, nonreactive. NECK: Supple. LUNGS: With diminished breath sounds bilaterally. CARDIOVASCULAR: With a regular rate. ABDOMEN: Soft, nontender. EXTREMITIES: With no pitting edema. She has an obvious prolapse bladder. LABORATORY DATA: Reviewed. Bicarbonate is 9. Sodium 146, potassium 4.8, chloride 108, BUN 24, creatinine 1.7. Lactic acid 18.8. Urine drug screen positive for opiates. White cell count 9.2, hemoglobin 9.9, platelets are 180. ABG showed a pH of 6.9, pCO2 of 33, pO2 of 119 on 100% FiO2 with bicarbonate of 8. IMPRESSION: 1. Acute respiratory failure secondary to code blue with cardiac arrest. 2. Cardiac arrest with prolonged CPR for 30 minutes x 2. The etiology could be related to ventricular arrhythmias. However, the possibility of ischemic bowel cannot be ruled out. 3. Rib fractures on the right side with a skin fold and no definite pneumothorax. 4. Shock, likely combination of hypovolemic and septic shock. Need to do an echocardiogram as well. On 3 doses of maximum pressors. She has received 3 liters of IV fluids already. 5. No significant tobacco history. 6. Severe metabolic acidosis. 7. Acute kidney injury. RECOMMENDATIONS: 1. Continue with present assist control mode. 2. Continue present pressors. 3. Bicarbonate as needed. 4. Echocardiogram. 5. Supportive care. 6. I had a lengthy discussion with the entire patient's family. I explained to them her grim chances of survival and likelihood of anoxic brain injury. They agree. They do not want any further CPR or chest compressions or electrical shock. They are likely to withdraw care later. They would like to reach her boyfriend and notify him as well. They do not think that they are legally . Discussed with RN and RT. CRITICAL CARE TIME: 40 minutes. NIRALI TRIVEDI MD DR: GOMEZ/bre JOB#: [id number] / [id number]
--- NOTE | 2019-05-13 11:55 | NUR ---
Ailyn Hadley APRN spoke with patient's family regarding code status/outcome. Patient's son and patient's siblings decided to make patient a DNR. Will continue with aggressive vasopressor support, but will not code patient. Palliative care has been consulted.
[2019-05-13] MEDS ORDERED: DOXYCYCLINE HYCLATE 100 MG in IV DEXTROSE 5% 100ML 100 ML IV SCH (12:00)
--- NOTE | 2019-05-13 12:05 | HP ---
ADMIT DATE: 05/12/2019 CHIEF COMPLAINT: Chest pain, shortness of breath, nausea, abdominal pain. HISTORY OF PRESENT ILLNESS: The patient is a pleasant 79-year-old female who presented with the above chief complaints, has been occurring for a couple of days, it got worse yesterday. She was initially admitted to the medical floor where she became bradycardic and apneic. Rapid Response was called. She eventually went into cardiac arrest on the floor. She has now been transferred to the ICU where I am examining her. We had multiple nurses and Dr. Ulloa is here examining her with me. It should be noted that she was shot several times during the code. She also received several rounds of appropriate antiarrhythmics and atropine and other meds. She actually had 2 codes, one was 10 minutes and one was even longer. She is currently hypotensive and on pressors. PAST MEDICAL HISTORY: Hypertension, hyperlipidemia, osteoarthritis. ALLERGIES: PENICILLIN. FAMILY HISTORY: Coronary artery disease. SOCIAL HISTORY: I believe she lives alone. No drinking, smoking, or drugs. 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 MEDICATIONS: Reviewed, please refer to the MRAD. REVIEW OF SYSTEMS: Unable to obtain. PHYSICAL EXAMINATION: VITALS: Within normal limits and are stable. GENERAL: No apparent distress. Alert and oriented. HEENT: Head is normocephalic, atraumatic. The oral mucosa is semi-dry. She has ET tube in place. NECK: Supple, no JVD, no thyromegaly was noted. LUNGS: Clear to auscultation in all lung braxton without rhonchi or wheezing. Slight crackles. HEART: She is tachycardic. Distant S1, S2 with a soft S3. Peripheral pulses intact, no obvious murmurs were noted. ABDOMEN: Soft, nontender. Positive bowel sounds no organomegaly, normal bowel sounds. GENITOURINARY: She seems to have a uterine prolapse. EXTREMITIES: Without any cyanosis, clubbing, or edema. Pedal pulses intact, Homans sign is negative. NEUROLOGIC: Her pupils are huge, very dilated, nonreactive, but she is unresponsive. PSYCHIATRIC: Normal affect, normal mood. Stable. SKIN: No ulcerations or rashes, good skin turgor, no jaundice. VASCULAR: Good capillary refill, neurovascular bundle appears to be intact. LABORATORY DATA: White count 9, hemoglobin 9.9, platelets 180. Electrolytes: Sodium 146, potassium 5.8, chloride 108, bicarbonate 29, BUN 24, creatinine 1.7, glucose 102. Lactic acid 18.8. ASSESSMENT AND PLAN: Cardiac arrest with respiratory failure, severe lactic acidosis, hypernatremia, anemia in an elderly female who has the above-noted comorbidities. Prognosis seems extremely poor. For now, we are trying to do vent weaning. We have her on pressors. We are going to try to wean those off, but again her prognosis is extremely poor. I suspect she will not survive. We have consulted Palliative Care and Pulmonary and Cardiology. TOTAL TIME: 32 minutes. JAQUAN LÓPEZ DO DR: MARJORIE/bre JOB#: [id number] / [id number]
--- NOTE | 2019-05-13 12:52 | NUR ---
Time of 1233. MD's notified by RN. Patient's family at bedside at time of . Patient's originally wanted full code, son and all of patient's siblings decided on DNR. Patient's decided at bedside when patient started going bradycardic that he did not want to code patient-- verbalized to family and RN at bedside. home is undecided at this time. Family has phone number for unit-- [place], , stated that he would call unit and let RN know when they decide on home.
--- NOTE | 2019-05-13 12:57 | NUR ---
RN called [facility] at 1249. Patient is not a candidate for donation. .
--- NOTE | 2019-05-13 15:13 | NUR ---
SS following for discharge planning. SS reviewed pt chart. Pt is from home and is currently on the vent. Palliative Care consulted. SS will continue to follow for discharge planning.
[2019-05-18 11:35] LABS: PCO2 ABG 68 mmHg (35-46)
[2019-05-18 11:36] LABS: SAT O2 ABG 69 % (92-99)
== END 2019-05-13 20:49 | disposition expired | DRG 871 ==
LOC: ER 15:38 → 2 SOUTH 20:20 → 1 WEST ICU 22:44
PROVIDERS: ADMIT Family Medicine; ATTEND Family Medicine
PROC: 0BH17EZ Insertion of Endotracheal Airway into Trachea, Via Natural or Artificial Opening (ICD-10-PCS; principal; 2019-05-13)
PROC: 5A1935Z Respiratory Ventilation, Less than 24 Consecutive Hours (ICD-10-PCS; 2019-05-13)
PROC: 5A12012 Performance of Cardiac Output, Single, Manual (ICD-10-PCS; 2019-05-13)
DX: A41.9 Sepsis, unspecified organism (principal); J96.00 Acute respiratory failure, unspecified whether with hypoxia or hypercapnia; R65.21 Severe sepsis with septic shock; J18.9 Pneumonia, unspecified organism; N17.9 Acute kidney failure, unspecified; Z68.1 Body mass index [BMI] 19.9 or less, adult; E87.0 Hyperosmolality and hypernatremia; R64 Cachexia; N13.30 Unspecified hydronephrosis; G93.1 Anoxic brain damage, not elsewhere classified; I46.9 Cardiac arrest, cause unspecified; I11.0 Hypertensive heart disease with heart failure; E78.5 Hyperlipidemia, unspecified; I50.9 Heart failure, unspecified; I49.01 Ventricular fibrillation; E87.5 Hyperkalemia; E86.1 Hypovolemia; D64.9 Anemia, unspecified; M19.90 Unspecified osteoarthritis, unspecified site; Z82.49 Family history of ischemic heart disease and other diseases of the circulatory system; Z88.0 Allergy status to penicillin; Z90.49 Acquired absence of other specified parts of digestive tract
CPT/HCPCS: 36415; 36600; 71045; 71275; 74018; 74174; 80048; 80053; 80307; 81001; 82553; 82805; 82962; 83605; 83690; 83735; 83880; 84443; 84484; 85007; 85025; 87040; 93005; 94002; 96361; 96365; 96375; 96376; J0171; J0282; J0461; J0780; J1265; J1956; J2270; J2405; J3475; J3490; J7030; J7050; Q9967; 99291-25; G0378